=== PATIENT | female | born 1985 | race Caucasian/White ===

== ENCOUNTER 2016-07-12 00:05 | Emergency (ER) | payer MEDICAID ==
[~2016-07-12] VITALS: Ht 165.1 cm; Wt 97.5 kg
[2016-07-12 00:11] VITALS: BP 145/87
--- NOTE | 2016-07-12 00:30 | NUR ---
31 Y/O M W/C/O ABCESS TO BACK OF HEAD R/T POSSIBLE SPIDER BITE SINCE Friday07/07/16. DENIES ANY FEVER OR CHILLS, NAUSEA OR VOMITING. NO S/S OF DISTRESS NOTED AT THE MOMENT. ER MD MADE AWARE.
--- NOTE | 2016-07-12 00:32 | NUR ---
PT TAKEN TO BED 7
[2016-07-12] MEDS ORDERED: LIDOCAINE 1% 500 MG/50 ML VIAL INJ ONE (01:10)
--- NOTE | 2016-07-12 01:17 | NUR ---
Dr. Cuadra evaluating patient at bedside.
[2016-07-12 01:42] VITALS: BP 160/90
--- NOTE | 2016-07-12 01:42 | NUR ---
Patient discharged with v/s stable. Written and verbal after care instructions given and explained. Patient alert, oriented and verbalized understanding of instructions. Ambulatory with steady gait. All questions addressed prior to discharge. ID band removed. Patient advised to follow up with PMD. Rx of MOTRIN 800 MG, BACTRIM 800/160 MG given. Patient educated on indication of medication including possible reaction and side effects. Opportunity to ask questions provided and answered.
== END 2016-07-12 01:42 | disposition home or self-care (01) ==
LOC: MED 00:05
DX: L02.811 Cutaneous abscess of head [any part, except face] (principal); Z88.0 Allergy status to penicillin; Z88.1 Allergy status to other antibiotic agents
CPT/HCPCS: 10060; 99283; J2001

== ENCOUNTER 2023-09-29 12:42 | Emergency (ER) | payer MEDICAID, OTHER ==
[~2023-09-29] VITALS: Ht 165.1 cm; Wt 123.8 kg
[2023-09-29 12:47] VITALS: BP 123/78; PULSE 83; RESP 20; TEMP 97.8; O2SAT 95
[2023-09-29 14:17] LABS: BASOPHILS % (AUTO) 0.4 % (0.0-2.0); EOSINOPHILS # (AUTO) 0.1 K/uL (0-0.4); EOSINOPHILS % (AUTO) 1.1 % (0.0-4.0); HEMATOCRIT 34.6 % (36-48); HEMOGLOBIN 11.7 g/dL (12.0-16.0); LYMPHOCYTES # (AUTO) 0.7 K/uL (2.5-16.5); LYMPHOCYTES % (AUTO) 12.1 % (20.5-51.1); MEAN CORPUSCULAR HEMOGLOBIN 27 pg (27-31); MEAN CORPUSCULAR HGB CONC 34 g/dL (33-37); MONOCYTES # (AUTO) 0.5 K/uL (0.8-1.0); MONOCYTES % (AUTO) 8.3 % (1.7-9.3); NEUTROPHILS # (AUTO) 4.6 K/uL (1.8-7.7); NEUTROPHILS % (AUTO) 78.1 % (42.2-75.2); PLATELET COUNT (AUTO) 207 K/uL (140-450); RED BLOOD CELL COUNT(AUTO) 4.27 MIL/uL (4.20-5.40); RED CELL DISTRIBUTION WIDTH 15.8 % (11.6-13.7); WHITE BLOOD COUNT (AUTO) 5.9 K/uL (4.8-10.8)
[2023-09-29 14:27] LABS: CALCIUM 9.8 mg/dL (8.5-10.1); CARBON DIOXIDE 27.7 mmol/L (21-32); CREATININE 0.9 mg/dL (0.6-1.3); POTASSIUM 3.7 mmol/L (3.5-5.1)
[2023-09-29] MEDS: KETOROLAC 30 MG/ML VIAL IVP ONE (14:53)
[2023-09-29] MEDS ORDERED: SULF-59 PO (16:49)
[2023-09-29] MEDS ORDERED: IBUP-2213 PO (16:49)
[2023-09-29] MEDS ORDERED: CEFP200T20 PO (16:49)
[2023-09-29 16:57] VITALS: BP 123/78; PULSE 83; RESP 20; TEMP 97.8; O2SAT 95
== END 2023-09-29 16:56 | disposition home or self-care (01) ==
LOC: MED 12:42
DX: L03.213 Periorbital cellulitis (principal); I10 Essential (primary) hypertension; Z79.899 Other long term (current) drug therapy; Z88.0 Allergy status to penicillin; Z88.1 Allergy status to other antibiotic agents
CPT/HCPCS: 36415; 70481; 80048; 81025; 85025; 96374; 99285; J1885; Q9967